=== PATIENT | male | born 1940 | race Caucasian/White ===

== ENCOUNTER → 2019-02-09 08:02 | Outpatient (CLI) | payer MEDICARE, BC ==
[2015-01-22 08:44] VITALS: BMI 37.0
[~2019-02-09 08:02] MED LIST: BETAPACE 80 MG80 MG PO; CALCIUM 600+D T1 TA1 PO; COZAAR100 MG PO; HYDROCHLOROTHIA25 MG PO; HYTRIN10 MG PO; KLOR-CON 88 MEQ PO; LOVENOX40 MG/0.4 SC; NORVASC10 MG PO; SAVAYSA PO
== END | disposition home or self-care (01) ==
LOC: D.US 08:02
PROVIDERS: ATTEND Family Medicine
DX: R10.9 Unspecified abdominal pain (principal)

== ENCOUNTER → 2019-11-23 13:01 | Outpatient (CLI) | payer MEDICARE, BC ==
[2015-01-22 08:44] VITALS: BMI 37.0
== END | disposition home or self-care (01) ==
LOC: D.HCCECHO 13:01
PROVIDERS: ATTEND Internal Medicine Cardiovascular Disease
DX: I34.0 Nonrheumatic mitral (valve) insufficiency (principal)